=== PATIENT | female | born 2000 | race Two or more races ===

== ENCOUNTER 2024-05-12 12:23 | Outpatient (RCR) | payer MEDICAID, SELFPAY ==
--- NOTE | 2024-04-21 12:47 | XR_ITS ---
Examination: Biophysical profile, ultrasound Date and time of exam: April 21, 2024 1316 hours INDICATIONS: History onset vaginal bleeding September 2023 Technique: Multiple transabdominal sonographic images of the pelvis abdomen obtained. Attention is directed to the breathing movement, gross body movement, amniotic fluid volume and tone. Findings: Amniotic fluid index 18.6 cm Total biophysical profile is 8 of 8. breathing movement is 2. Gross body movement is 2. tone is 2. Qualitative amniotic fluid volume is 2 Impression: Biophysical profile is 8 of 8.
[2024-04-21 13:47] VITALS: BP 137/88; PULSE 109; RESP 18; TEMP 36.9
--- NOTE | 2024-04-28 12:16 | XR_ITS ---
Examination: Biophysical profile, ultrasound Date and time of exam: April 28, 2024 1253 hours INDICATIONS: Diagnosis large for gestational age, diagnosis obesity complicating , diagnosis vaginal bleeding history onset September 2023 Technique: Multiple transabdominal sonographic images of the pelvis abdomen obtained. Attention is directed to the breathing movement, gross body movement, amniotic fluid volume and tone. Findings: Amniotic fluid index 16.7 cm Total biophysical profile is 8 of 8. breathing movement is 2. Gross body movement is 2. tone is 2. Qualitative amniotic fluid volume is 2 Impression: Biophysical profile is 8 of 8.
[2024-04-28 13:42] VITALS: BP 118/79; PULSE 108; RESP 18; TEMP 36.8
--- NOTE | 2024-05-05 12:33 | XR_ITS ---
Examination: Biophysical profile, ultrasound Date and time of exam: May 05, 2024 1242 hours INDICATIONS: Diagnosis large for gestational age, diagnosis obesity complicating Technique: Multiple transabdominal sonographic images of the pelvis abdomen obtained. Attention is directed to the breathing movement, gross body movement, amniotic fluid volume and tone. Findings: Amniotic fluid index 12.5 cm Total biophysical profile is 8 of 8. breathing movement is 2. Gross body movement is 2. tone is 2. Qualitative amniotic fluid volume is 2 Impression: Biophysical profile is 8 of 8.
[2024-05-05 13:40] VITALS: BP 138/95; PULSE 104; RESP 18; TEMP 36.7
--- NOTE | 2024-05-05 13:52 | P.TNLD_ITS ---
Documentation for date of: 05/05/24 Hx History Provider: Kasia Bauman : 3 Para: 0 Hx Section: No Hx Vaginal Delivery Post : No Gestation Info Date of LMP: 08/13/23 Final RICO: 05/19/24 Gestational Age (weeks): 38 Gestational Age (days): 0 Complaint Complaint Complaint: NST for LGA/ Elevated Maternal BMI Contractions Evaluation Contractions Monitor Mode: External Contraction Frequency: 1-2 Contraction Duration: 30 sec Resting Tone Palpate: Soft Contraction Intensity: Mild Contraction Comment: Pt contacting frequently. Notes UCs feel like tightening Sterile Vaginal Exam Cervical Dilatation: 1-2 Cervical Effacement: 70 Station: -2 Vaginal Bleeding Vaginal Bleeding Amount: None Heart Monitoring Heart Rate Assessment Monitor Mode: External FHR Baseline: 130 Variability: Moderate Accelerations: 15x15 Monitor Decelerations: None FHR Pattern Category: Category l Movement Reported: Yes NST Reactive: Yes WNL for GA: Yes Assessment Comment: Category I tracing with frequent accelerations through UCs Amniotic Membranes Amniotic Membranes Amniotic Membrane Status: Intact Ultrasound results US Report BPP: 11/12 GRAHAM: 16.7 Gestational Age (weeks): 37 Gestational Age (days): 0 Abruption: No Previa: No RN Notes Notes LD Triage Comment: Examined by Dr. Khan. Patient sees the trauma program manager at [facility]. She came for scheduled NST for suspected LGA baby. The baby is suspected 9 pounds at her due date. As she was simón every 1 to 2 minutes I offered the patient a vaginal exam and she excepted. Patient is 1 to 2 cm dilated vertex presentation 70% effaced -2 station with an adequate pelvic outlet. Patient sees her nurse trauma program manager in the next 1 to 2 days and will follow-up then. The father of the baby is at bedside. All questions were answered and the findings today explained to the patient and the father of the baby. Disposition Dispostition: Home Date: 05/05/24 Time: 13:59
--- NOTE | 2024-05-12 12:29 | XR_ITS ---
Examination: Biophysical profile, ultrasound Date and time of exam: May 12, 2024 1242 hours INDICATIONS: Diagnosis large for gestational age, diagnosis obesity complicating Technique: Multiple transabdominal sonographic images of the pelvis abdomen obtained. Attention is directed to the breathing movement, gross body movement, amniotic fluid volume and tone. Findings: Amniotic fluid index 14.8 cm Total biophysical profile is 8 of 8. breathing movement is 2. Gross body movement is 2. tone is 2. Qualitative amniotic fluid volume is 2 Impression: Biophysical profile is 8 of 8.
[2024-05-12 13:20] VITALS: BP 134/94; PULSE 108; RESP 18; TEMP 37.1
== END 2024-05-12 23:59 | disposition home or self-care (01) ==
LOC: S4S1 12:23
PROVIDERS: PCP Physician Assistant; Referring Provider Nurse Practitioner Women's Health; Visit Provider Nurse Practitioner Women's Health
DX: O99.213 Obesity complicating pregnancy, third trimester (principal); E66.9 Obesity, unspecified; Z3A.38 38 weeks gestation of pregnancy
CPT/HCPCS: 59025; 76819

== ENCOUNTER 2024-05-15 02:59 | Observation (INO) | payer MEDICAID, SELFPAY ==
[2024-05-15 03:20] VITALS: BP 138/97; PULSE 112; RESP 18; RESP 98; TEMP 36.8
[2024-05-15 03:21] VITALS: BMI 38.7
== END 2024-05-15 03:49 | disposition home or self-care (01) ==
PROVIDERS: Admitting Provider Student in an Organized Health Care Education/Training Program; Visit Provider Nurse Practitioner Women's Health
DX: O47.1 False labor at or after 37 completed weeks of gestation (principal); Z3A.39 39 weeks gestation of pregnancy
CPT/HCPCS: 59899

== ENCOUNTER 2024-05-15 05:00 | Inpatient (IN) | payer MEDICAID, SELFPAY ==
[2024-05-15] VITALS (249 sets, daily range): BP systolic 95–149; BP diastolic 44–100; PULSE 101–147; RESP 18–20; TEMP 36.7–37.7; O2SAT 87–100; BMI 38.9
[2024-05-15 06:34] LABS: Basophils % (Auto) 0 % (0-2.5); Eosinophils % (Auto) 0 % (0-10); Hematocrit 34.3 % (36.0-46.0); Immature Granulocytes % (Auto) 1 % (0-0); Immature Granulocytes Auto 0.14 Thou/mm3 (0.00-0.00); Lymphocytes # (Auto) 1.1 Thou/mm3 (1.0-4.8); Lymphocytes % (Auto) 6 % (10-50); Mean Corpuscular Hemoglobin 33.1 pg (25.0-35.0); Mean Corpuscular Volume 95 fL (80-100); Monocytes # (Auto) 1.2 Thou/mm3 (0.0-0.8); Monocytes % (Auto) 6 % (0-12); Neutrophils # (Auto) 16.5 Thou/mm3 (1.8-7.7); Neutrophils % (Auto) 87 % (37-80); Nucleated Red Blood Cell % 0 /100 WBC (0); Platelet Count 211 Thou/mm3 (140-440); RDW Standard Deviation 44.9 fL (36.4-46.3); Red Blood Count 3.63 Miln/mm3 (4.00-5.20); White Blood Count 18.9 Thou/mm3 (3.6-11.0)
--- NOTE | 2024-05-15 07:16 | PD.LDHP ---
Documentation for date of: 05/15/24 OB Labor/Induct. HPI History of Present Illness Chief complaint: 23 y/o 39w 3d presents to L&D in labor : 3 Para: 0 Term pregnancies: 0 pregnancies: 0 Living children: 0 History of Abortions: Spontaneous and Elective: 2 History of Vaginal deliveries: 0 History of sections: No History of : No Date of last menstrual period: 08/13/23 RICO: 05/19/24 Gestational Age (weeks): 39 Gestational Age (days): 3 Gestational age based on last menstrual period: 39 History of present illness: 23 y/o 39w 3d presents to L&D in early labor, pt came in last night and was sent home at 1 cm,, she returned this morning and is now 3/80/-2 vertex contracting1-3 minutes in pain wanting an epidural. GBS is neg. Pt has a hx of 1 SAB and AB. Pt's has been complicated by obesity. Pt saw [facility] on 03/24/24 growth noted at 87%ile, AC at 93%ile, LGA fetus, cephalic. Fetus EFW aas of today is about 3800g History of Present Adequate Care: Yes Ultrasounds: normal 1st trimester US and normal mid trimester US Obstetrical complications: other (Obesity ) Labs Maternal Blood Type: O Pos Labs: Positive: Rubella Titre, Negative: RPR, Hepatitis B, HIV, Chlamydia, Gonorrhea and Group Beta Strep and Unknown: Herpes Type 1 and Herpes Type 2 Review of Systems Review of Systems Systems Reviewed: All systems reviewed, normal except as documented Past Medical History Surgical History SURGICAL: Negative Section Meds Home Medications and Allergies Home Medications ?Medication ?Instructions ?Recorded ?Confirmed ?Type folic acid 1 mg tablet 1 mg PO QDAY 04/21/24 05/15/24 History vitamins no.159-iron 1 tab PO QDAY 04/21/24 05/15/24 History fumarate 28 mg-folic acid 800 mcg tablet ( Vitamin) Allergies Allergy/AdvReac Type Severity Reaction Status Date / Time No Known Allergies Allergy Verified 05/15/24 08:55 OB Exam Physical Exam Vital signs: Temp Pulse BP Pulse Ox 98.1 F 121 H 126/88 H 94 L 05/15/24 07:06 05/15/24 07:05 05/15/24 07:05 05/15/24 07:13 Constitutional Constitutional: moderate distress (Secondary to painful contractions) Routine HEENT Exam Head: Present normocephalic and atraumatic Eye: Present EOMI, PERRL and normal accommodation ENT: Present mucous membranes moist Routine Neck Exam Neck: Present full ROM Routine Respiratory Exam Respiratory: Absent respiratory distress Routine Cardiovascular Exam Cardiovascular: Present RRR Routine Abdominal Exam Abdominal: Present soft Comments: Gravid Uterus EFW 3800g Routine Exam External: Present normal urethra appearance; Absent lesions Detailed Labor and Delivery Exam Dilation (cm): 3 Effacement (%): 80 Cervix position: posterior station: -2 Consistency: soft Presentation: Vertex Membranes: intact Baseline heart rate: 130 monitor accelerations: 15x15 skilled nursing variability: Moderate (11-25) Contraction frequency (min): 1-3 Contraction duration (sec): 40-80 Tachysystole: No Contraction intensity: Moderate Routine Extremities Exam Extremities: Present full ROM Routine Back/Spine/Pelvis Exam Back/Spine: Present full ROM Routine Skin Exam Skin: Present intact, dry and warm Routine Neurological Exam Neurological: Present alert, oriented X3 and CN II-XII intact Routine Psychiatric Exam Psychiatric: Present normal affect and normal thought process OB Results Labs 05/15/24 06:00 Labs: Short CBC 05/15/24 Range/Units 06:00 WBC 18.9 H (3.6-11.0) Thou/mm3 Hgb 12.0 (12.0-16.0) g/dL Hct 34.3 L (36.0-46.0) % Plt Count 211 (140-440) Thou/mm3 OB Assessment & Plan Assessment and Plan (1) Normal labor: Status: Acute (2) with 39 completed weeks gestation: Status: Acute (3) Obesity (BMI 30-39.9): Status: Acute Additional Plan Induction method: none Plan: augmentation (if needed with pitocin per protocol), anticipate NVD and consult prdemi Additional Plan Comment: Routine admit orders Consult anesthesia for an epidural Continuos EFM
[2024-05-15] MEDS: fentaNYL CIT INJ 50 mCg/ML AMP 2ML 100 MCG IV (07:22)
[2024-05-15 07:37] LABS: Amphetamine/Metham Scrn,Ur OB Negative (Negative); Benzoylecgonine Screen, Ur OB Negative (Negative); Opiate Screen,Urine OB Negative (Negative); THC Screen,Urine OB Negative (Negative)
[2024-05-15 07:43] LABS: Syphilis Nonreactive (Nonreactive)
[2024-05-15] MEDS: RINGERS LACTATED 1000 ML 1,000 ML 125 ML IV ×3 (07:45→18:19)
[2024-05-15] MEDS: OXYTOCIN in NS 30 units 30 UNIT/500 ML BAG IV (10:15)
--- NOTE | 2024-05-15 14:06 | PD.LDPN ---
Documentation for date of: 05/15/24 OB Labor Progress Note Pain Control Pain control: epidural Pelvic Exam Dilation (cm): 9 Effacement (%): 100 station: +1 Amniotic membrane status: Ruptured (AROM- clear) Contractions Monitor mode: External Contraction frequency: 1-3 Contraction duration: 40-60 Contraction phase: Contraction Contraction intensity: Strong Status status: Category l Assessment and Plan Assessment: active labor Plan OB labor note: continuous present management Comments: AROM performed - clear fluids Anticipate
[2024-05-15] MEDS: ACETAMINOPHEN IVPB 1,000 MG/100 ML VIAL 250 MG IV (15:22)
[2024-05-15] MEDS: MINERAL OIL 30 ML UDC TOP (20:15)
[2024-05-15] MEDS: OXYTOCIN in NS 20 units 20 UNIT/1,000 ML BAG 125 UNIT IV (20:20)
[2024-05-15] MEDS: BENZO/LANO/ALOE (Dermoplast) 60 GM CAN 1 SPRAY TOP (20:28)
[2024-05-15] MEDS: IBUPROFEN TAB 400 MG TABLET 800 MG PO (20:28)
[2024-05-15] MEDS: TRANEXAMIC ACID 1,000 MG IVPB 1,000 MG/100 ML BAG 200 MG IV ×2 (20:30→21:16)
--- NOTE | 2024-05-15 20:47 | PD.LDDELS ---
Data (Guerra) Data Hx Section: No Maternal Blood Type: O Pos Rubella Titre: Positive RPR: Non-reactive Labs: Negative: RPR, Hepatitis B, HIV, Chlamydia, Gonorrhea and Group Beta Strep and Unknown: Herpes Type 1 and Herpes Type 2 : 3 Para: 0 Term: 0 : 0 Livin : 2 Delivery Data (Guerra) Labor Data Stimulated/Augmented: Yes Induction: No Method: Oxytocin ROM Date: 05/15/24 ROM Time: 14:04 Rupture Type: AROM Amniotic Fluid: Clear Delivery Data EDC: 05/19/24 EDC calculated by:: LMP/early US confirmation Labor Onset Stage 1 Date: 05/15/24 Labor Onset Stage 1 Time: 08:40 Labor Onset Stage 2 Date: 05/15/24 Labor Onset Stage 2 Time: 18:01 Delivery Date: 05/15/24 Delivery Time: 20:17 Gestational age (weeks): 39 Gestational age (days): 3 Placenta Delivery Date: 05/15/24 Placenta Delivery Time: 20:20 Delivered by: Kasia Bauman Delivery nurse: Lacy Turpin Clinical Geneticist at delivery: No Support person(s) at delivery: FOB Other staff at delivery: 2nd Nurse Other staff at delivery: 2nd Nurse Other staff at delivery: Ashley Mata Other staff at delivery: Dmitry Xie Delivery Method Delivery: Vaginal Delivery Type: Spontaneous Presentation: Vertex Position: OA Anesthesia Type Primary Anesthesia: Epidural Delivery Room Medications Other Intrapartum Medications: No Post Delivery Medications N/A: No Placenta Placenta Delivery: Spontaneous Placenta Cultures Obtained: No Placenta Sent for Examination: No Cord Sample: Cord Blood Obtained Episiotomy Episiotomy: None Lacerations #1: Perineal: 2nd degree Perineal repair Sutures used for repair: 3.0 Vicryl (CTx2) EBL Estimated blood loss (ml): 400 Umbilical Cord Umbilical Vessels: 3 Nuchal Cord: x2 Body Cord: Not Applicable Additional Procedures Patient pushed for about an hour and CNM was called in. Then after 2 pushes patient had an of a viable male infant. Infant's anterior shoulder delivered with gentle downward traction subsequent deliver the posterior shoulder and the body without complications. Infant placed on mother's abdomen. Vigorous cry upon delivery. Cord was clamped. Cut by FOB. Cord blood obtained. Three-vessel cord noted. Placenta expelled spontaneously and intact. Patient sustained a second-degree perineal laceration. With a right sulcus laceration. Repaired using a 3-[address] suture x 2. IV Pitocin x 1 given. And TXA x 2. Excellent hemostasis achieved after vigorous fundal massage and removal of clots from the posterior fornix. EBL 400. Sponge and needle count correct. Mother and baby stable, skin to skin and bonding in LDR. Data (Guerra) Data Infant Gender: Male Infant Weight Grams: 3745 1 Minute Total: 9 5 Minute Total: 9
[2024-05-16 01:08] VITALS: BP 109/76; PULSE 106; RESP 18; TEMP 36.7; O2SAT 97
[2024-05-16 02:26] LABS: Basophils # (Auto) 0.1 Thou/mm3 (0.0-0.2); Basophils % (Auto) 0 % (0-2.5); Eosinophils % (Auto) 0 % (0-10); Hematocrit 29.5 % (36.0-46.0); Hemoglobin 10.4 g/dL (12.0-16.0); Immature Granulocytes % (Auto) 0 % (0-0); Lymphocytes % (Auto) 4 % (10-50); Mean Corpuscular HGB Conc 35.3 g/dl (31.0-37.0); Mean Corpuscular Hemoglobin 33.7 pg (25.0-35.0); Mean Corpuscular Volume 96 fL (80-100); Monocytes # (Auto) 1.7 Thou/mm3 (0.0-0.8); Monocytes % (Auto) 7 % (0-12); Neutrophils # (Auto) 20.6 Thou/mm3 (1.8-7.7); Neutrophils % (Auto) 88 % (37-80); Nucleated Red Blood Cell % 0 /100 WBC (0); Platelet Count 206 Thou/mm3 (140-440); RDW Standard Deviation 46.2 fL (36.4-46.3); Red Blood Count 3.09 Miln/mm3 (4.00-5.20); White Blood Count 23.4 Thou/mm3 (3.6-11.0)
[2024-05-16 05:00] VITALS: BP 114/78; PULSE 94; RESP 18; TEMP 36.8; O2SAT 98
--- NOTE | 2024-05-16 08:18 | PC.CC ---
Patient is a 23-year-old, female, present to for delivery of baby boy, Jimmy Huynh. ASW, Marii, met with patient [id number] to do initial assessment due mother testing positive for history THC and Anxiety. ASW introduced herself, role in the agency, reason for visit, and discussed limits of confidentiality. Patient appeared alert and oriented to self, time, place, and situation. At bedside was Father of Baby (FOB) Modesto Huynh whom mother provided consent to remain in the room during assessment. Patient made good eye contact. Patient was cooperative. Patient?s behavior appeared ordinary. No signs of delusions or hallucinations. Mother reports the last time she used THC was approximately 3 years ago. Mother reports she does not have a diagnosis of generalized anxiety but has anxious symptoms. Mother has all supplies she needs for her new born and plans to breast feed. Mother is receiving WIC. Mother reports her support system includes the FOB and her extended family. Mother denied CWS involvement and denied domestic violence. ASW provided psychoeducation regarding baby blues and Post- Depression, as well as counseling groups at [facility], and [facility]. SW provided community resources: Warm Line and Crisis Line. ASW updated bedside DENY Olson.
[2024-05-16 09:00] VITALS: BP 127/87; PULSE 101; RESP 17; TEMP 36.7; O2SAT 98
[2024-05-16] MEDS: DOCUSATE SOD 100 MG CAPSULE PO (09:16)
--- NOTE | 2024-05-16 10:03 | CHAP ---
Patient was visited by the Spiritual Care Volunteer who prayed for them. (Volunteer was in the hospital C 09:05-10:03)
--- NOTE | 2024-05-16 11:00 | ESDS_ITS ---
DS: Providers Provider Date of admission: 05/15/24 05:00 Primary care physician: Physician No Primary/Family Admitting Provider: Madeline Tan MD Attending Provider on Admission: Kasia Bauman CNM Attending Provider on DC: Kasia Bauman CNM Discharging Provider: Kasia Bauman CNM Anticipated date of discharge: 05/16/24 DS: Diagnosis Discharge Diagnosis (1) Normal spontaneous vaginal delivery: Status: Acute (2) Encounter for care of lactating mother: Status: Acute (3) Normal labor: Status: Acute (4) Obesity (BMI 30-39.9): Status: Acute (5) with 39 completed weeks gestation: Status: Acute Problem List Completed Was Problem List Reviewed/Reconciled?: Yes Summary/Hosp Course Brief History: 23 y/o 39w 3d presents to L&D in early labor, pt came in last night and was sent home at 1 cm,, she returned this morning and is now 3/80/-2 vertex contracting1-3 minutes in pain wanting an epidural. GBS is neg. Pt has a hx of 1 SAB and AB. Pt's has been complicated by obesity. Pt saw [facility] on 03/24/24 growth noted at 87%ile, AC at 93%ile, LGA fetus, cephalic. Fetus EFW aas of today is about 3800g 05/15/24: Patient pushed for about an hour and CNM was called in. Then after 2 pushes patient had an of a viable male . Infant's anterior shoulder delivered with gentle downward traction subsequent deliver the posterior shoulder and the body without complications. Infant placed on mother's abdomen. Vigorous cry upon delivery. Cord was clamped. Cut by FOB. Cord blood obtained. Three-vessel cord noted. Placenta expelled spontaneously and intact. Patient sustained a second-degree perineal laceration. With a right sulcus laceration. Repaired using a 3-[address] suture x 2. IV Pitocin x 1 given. And TXA x 2. Excellent hemostasis achieved after vigorous fundal massage and removal of clots from the posterior fornix. EBL 400. Sponge and needle count correct. Mother and baby stable, skin to skin and bonding in LDR. 05/16/24: day 1 patient is stable and afebrile and doing well patient denies dizziness shortness of breath. Ambulating with no problems to the bathroom. Passing gas. Uterus is nontender fundus firm minimal lochia. Patient will receive 1 dose of Ancef 2 g today. And okay to be discharged tonight. Discharge instructions given. Patient to follow-up with Kasia Bauman CNM in 3 weeks Peripartum Data Delivery Method: Normal Vaginal Delivery Episiotomy Description: None Laceration Description: yes and see Delivery Summary complications: none 1: Gender: Male Disposition of : home Status at Discharge Cognitive/behavioral status at discharge: Patient oriented x 3 Functional status at discharge: independent ambulation Overall status at discharge: patient is progressing back to baseline Time Spent with Patient Time attestation: Total time spent providing and/or coordinating discharge services: Time spent: Greater than 30 minutes Exam Vital Signs Temp Pulse Resp BP Pulse Ox 99.6 F 117 H 18 95/44 L 98 05/15/24 18:57 05/15/24 20:44 05/15/24 15:06 05/15/24 20:44 05/15/24 20:23 Constitutional Constitutional: no acute distress Routine HEENT Exam Head: Present normocephalic and atraumatic Eye: Present EOMI, PERRL and normal accommodation ENT: Present mucous membranes moist Routine Neck Exam Neck: Present supple, full ROM and trachea midline Routine Respiratory Exam Respiratory: Present chest non-tender, lungs clear, normal breath sounds and no resp distress Routine Cardiovascular Exam Cardiovascular: Present RRR Routine Abdominal Exam Abdominal: Present soft and normoactive bowel sounds; Absent tenderness or distended Comments: Uterus nontender Fundus firm Routine Exam External: Present normal urethra appearance and lacerations (healing); Absent lesions Comments: [place] is normal Routine Extremities Exam Extremities: Present full ROM, pulses intact and normal capillary refill; Absent calf tenderness or tenderness Routine Back/Spine/Pelvis Exam Back/Spine: Present full ROM Routine Skin Exam Skin: Present intact, dry and warm Routine Neurological Exam Neurological: Present alert, oriented X3 and CN II-XII intact Routine Psychiatric Exam Psychiatric: Present normal affect and normal thought process Discharge Plan Plan Patient Disposition: HOME (Self Care) Patient condition on transfer: Stable Prescriptions/Referrals Prescriptions/Med Rec: New ibuprofen 800 mg tablet 800 mg PO Q6H MDD 4 PRN (Reason: pain) Qty: 120 0RF docusate sodium [Colace] 100 mg capsule 100 mg PO BID Qty: 60 0RF lanolin 50 % ointment 1 applic topical TID PRN (Reason: skin irritation) Qty: 15 0RF Continued folic acid 1 mg Tablet 1 mg PO QDAY Vitamin 28 mg iron- 800 mcg Tablet 1 tab PO QDAY Referrals: No Primary/Family,Physician [Primary Care Provider] - Patient/Caregiver Discharge Instructions Meds to Beds: No Discharge Activity: activity as tolerated Other Discharge Activity Instructions:: Follow-up with Kasia Bauman CNM in 3 weeks Education Materials: After a Vaginal , How to Breastfeed, : Caring for Yourself Print Language: Nepali Stand Alone Forms: Kellee Award Info., Patient Portal Info Letter Discharge Order Discharge Orders: Discharge (Routine); Ordered 05/16/24 Ordered By: Kasia Bauman Planned Discharge Date 05/16/24
[2024-05-16] MEDS: CEFAZOLIN IV (12:00)
[2024-05-16] MEDS: SODIUM CHLORIDE 0.9% IV (12:00)
[2024-05-16 12:10] VITALS: BP 125/87; PULSE 95; RESP 16; TEMP 36.6; O2SAT 99
[2024-05-16 15:40] VITALS: BP 127/84; PULSE 106; RESP 16; TEMP 36.7; O2SAT 99
[2024-05-16 20:40] VITALS: BP 127/84; PULSE 100; RESP 18; TEMP 36.6; O2SAT 100
== END 2024-05-16 21:55 | disposition home or self-care (01) | DRG 560 ==
LOC: S4SX 20:58 → S4NX 05-16 07:26
PROVIDERS: Admitting Provider Student in an Organized Health Care Education/Training Program; Visit Provider Nurse Practitioner Women's Health
DX: O99.214 Obesity complicating childbirth (principal); O69.81X0 Labor and delivery complicated by cord around neck, without compression, not applicable or unspecified; O36.63X0 Maternal care for excessive fetal growth, third trimester, not applicable or unspecified; O70.1 Second degree perineal laceration during delivery; Z3A.39 39 weeks gestation of pregnancy; Z37.0 Single live birth
CPT/HCPCS: 36415; 80307; 85025; 86780; 86850; 86900; 86901; J0131; J0690; J2590; J2795; J3010; J3490; J7120; A9270